=== PATIENT | male | born 1990 | race Caucasian/White ===

== ENCOUNTER 2020-12-15 10:30 | Emergency (ER) | payer OTHER ==
[~2020-12-15] VITALS: Ht 188 cm; Wt 83.9 kg
[2020-12-15 11:10] VITALS: BP 118/73
--- NOTE | 2020-12-15 11:10 | NUR ---
pt stated that he was digging at work this past Saturday and felt something "slip" in his right shoulder. the pain hasn't stopped since.
--- NOTE | 2020-12-15 11:24 | Emergency Room Report ---
History of Present Illness General Chief Complaint: Upper Extremity Injury Source: Patient Present Illness HPI The patient was digging a ditch with a pick ax yesterday. He was swinging a pick ax over his head and heard a pop in his right shoulder. He states that in the past this is happened and has had a subluxed shoulder. He did not have to pop it back into place and therefore does not believe that it was dislocated at the time. He rates the pain 5-6/10 at this time. He is not taking any medication. He denies any numbness. The patient is right-handed. The patient denies exposure to Covid positive contacts. Allergies: Coded Allergies: No Known Allergies (Unverified , 12/15/20) COVID-19 Screening Contact w/high risk pt: No Experienced COVID-19 symptoms?: No COVID-19 Testing performed NARCOTICS DETECTIVE: No Patient History Past Medical History: none Social History: Denies: smoking Social History Narrative Working construction Reviewed Nursing Documentation: PMH: Agreed; PSxH: Agreed Nursing Documentation-PMH Past Medical History: No Stated History Review of Systems Constitutional: Denies: fever Cardiovascular: Denies: chest pain Musculoskeletal: Reports: see HPI Skin: Denies: rash Neurological: Denies: numbness Physical Exam Vital Signs Date Time Temp Pulse Resp B/P (MAP) Pulse Ox O2 Delivery O2 Flow Rate FiO2 12/15/20 10:59 98.2 75 17 118/73 (88) 99 Room Air Sp02 EP Interpretation: reviewed, normal General Appearance: well appearing, no apparent distress, GCS 15 Head: normocephalic Eyes: bilateral eye normal inspection, bilateral eye PERRL ENT: other - Wearing a mask Neck: normal inspection, full range of motion Respiratory: normal inspection Cardiovascular #1: regular rate, rhythm Cardiovascular #2: 2+ radial (R) Gastrointestinal: normal inspection Musculoskeletal: gait/station normal, tenderness - Right shoulder, supraspinatus and similar posterior. Range of motion is full however lifting the elbow causes some pain. No evidence of impingement Neurologic: alert, distal neuro normal - No deltoid numbness, grossly normal Psychiatric: mood/affect normal Skin: normal color, no rash, warm/dry Medical Decision Making Diagnostic Impression: Primary Impression: Shoulder sprain Qualified Codes: S43.421A - Sprain of right rotator cuff capsule, initial encounter ER Course Patient presents with shoulder pain after swinging a pick ax yesterday. Differential includes shoulder dislocation with self reduction, rotator cuff injury, other tendon strain, bursitis amongst others. Based on exam there are no tendon tears. X-rays of the shoulder are indicated. Distal neurovascular exam is normal. I suggested that the patient take a dose of anti-inflammatory however he declined. Shoulder x-rays normal. Discussed findings with patient and treatment plan. Discussed the need for rest of the shoulder in order to allow healing. I strongly advised the use of anti- inflammatory medication however he was somewhat adverse to this idea. Discussed the need for follow-up. Patient stable for outpatient observation and treatment. Other X-Ray Diagnostic Results Other X-Ray Diagnostic Results : X-Ray ordered: Shoulder # of Views/Limited Vs Complete: 3 View Indication: Pain EP Interpretation: Yes Interpretation: no dislocation, no soft tissue swelling, no fractures Impression: No acute disease Electronically Signed by: Electronically signed by Riccardo Lopez MD Last Vital Signs Date Time Temp Pulse Resp B/P (MAP) Pulse Ox O2 Delivery O2 Flow Rate FiO2 12/15/20 11:10 98.2 17 118/73 99 Room Air 12/15/20 10:59 75 Status: unchanged Disposition: HOME, SELF-CARE Condition: Stable Scripts Ibuprofen* (MOTRIN*) 600 Mg Tablet 600 MG ORAL Q6H PRN for FOR PAIN, #20 TAB 0 Refills Prov: Riccardo Lopez MD 12/15/20 Riccardo Lopez MD Dec 15, 2020 11:24
[2020-12-15] MEDS ORDERED: IBUPROFEN600 M1 ORAL (11:29)
--- NOTE | 2020-12-16 13:19 | Diagnostic Imaging Report ---
Indication: Right shoulder pain Technique: 3 views of the right shoulder Comparison: None Findings: No acute fractures or dislocations. Joint spaces are preserved. Impression: Negative
== END 2020-12-15 12:00 | disposition home or self-care (01) ==
LOC: EMR 11:22
DX: S43.421A Sprain of right rotator cuff capsule, initial encounter (principal); X50.1XXA Overexertion from prolonged static or awkward postures, initial encounter; Y93.89 Activity, other specified; Y92.9 Unspecified place or not applicable
CPT/HCPCS: 99283